=== PATIENT | male | born 1990 | race Caucasian/White ===

== ENCOUNTER 2017-10-18 14:03 | Emergency (ER) | payer OTHER ==
[2017-10-18] MEDS ORDERED: Bacitracin Oint 1 GM U/D Packet TOP ONE (14:23)
--- NOTE | 2017-10-18 14:33 | EDM.PDOC ---
ED HPI GENERAL MEDICAL PROBLEM - General Chief Complaint: Laceration Stated Complaint: FISH HOOK IN ARM Time Seen by Provider: 10/18/17 14:24 Source of Information: Reports: Patient History Limitations: Reports: No Limitations - History of Present Illness INITIAL COMMENTS - FREE TEXT/NARRATIVE: pt arrived with a fishook in his left wrist on the maldonado side. Onset: Today, Sudden Location: Reports: Upper Extremity, Left Associated Symptoms: Reports: No Other Symptoms left arm Pain Score (Numeric/FACES): 6 - Related Data Allergies Allergy/AdvReac Type Severity Reaction Status Date / Time No Known Allergies Allergy Verified 10/18/17 14:15 Home Meds: Home Meds LORazepam [Ativan] 1 mg PO DAILY 10/18/17 [History] Pantoprazole Sodium [Protonix] 40 mg PO DAILY 10/18/17 [History] Ranitidine HCl [Zantac 75] 75 mg PO DAILY 10/18/17 [History] Past Medical History Gastrointestinal History: Reports: GERD Psychiatric History: Reports: Anxiety - Past Surgical History HEENT Surgical History: Reports: Tonsillectomy Social & Family History - Tobacco Use Smoking Status *Q: Never Smoker - Recreational Drug Use Recreational Drug Use: No ED ROS GENERAL - Review of Systems Review Of Systems: See Below Musculoskeletal: Reports: Other (pt has a fishook in his left wrist area. ) Skin: Reports: No Symptoms Neurological: Reports: No Symptoms ED EXAM, SKIN/RASH Exam: See Below Text/Narrative:: pt has a fishook in his left wrist area. Exam Limited By: No Limitations General Appearance: Alert Extremities: Other (pt has a fishook in his left wrist area. ) Neurological: Alert, Oriented, Normal Cognition Course - Vital Signs Last Recorded V/S: Last Vital Signs Temp 36.7 C 10/18/17 14:16 Pulse 53 L 10/18/17 14:16 Resp 18 10/18/17 14:16 BP 140/77 10/18/17 14:16 Pulse Ox 98 10/18/17 14:16 - Orders/Labs/Meds Meds: Medications Discontinued Medications Generic Name Dose Route Start Last Admin Trade Name Freq PRN Reason Stop Dose Admin Bacitracin 1 dose 10/18/17 14:23 Bacitracin Oint 1 Gm TOP 10/18/17 14:24 ONETIME ONE Lidocaine HCl 5 ml 10/18/17 14:22 Xylocaine-Mpf 1% INJECT 10/18/17 14:23 ONETIME ONE - Re-Assessments/Exams Free Text/Narrative Re-Assessment/Exam: 10/18/17 14:42 The area was cleansed and infiltrated with lidocaine, the hook was pushed through with minimal difficulty the christine was cut off and the hook was removed. It was dressed with bacitracin Departure - Departure Time of Disposition: 14:38 Disposition: Home, Self-Care 01 Condition: Fair Clinical Impression: Fish hook injury of finger of left hand - Discharge Information Referrals: PCP,None [Primary Care Provider] - Forms: ED Department Discharge Care Plan Goals: soak area if tender, He is current with tetanus--booster in 2 years needed. rtc if problems.
== END 2017-10-18 14:48 | disposition home or self-care (01) ==
LOC: JP.ED 14:03
DX: S61.522A Laceration with foreign body of left wrist, initial encounter (principal); K21.9 Gastro-esophageal reflux disease without esophagitis; W45.8XXA Other foreign body or object entering through skin, initial encounter; Z79.899 Other long term (current) drug therapy
CPT/HCPCS: 99283